=== PATIENT | female | born 1980 | race Caucasian/White ===

== ENCOUNTER 2020-12-15 14:08 | Emergency (ER) | payer BC, SELFPAY ==
[2020-12-15 14:14] VITALS: BP 129/78; PULSE 85; RESP 16; TEMP 36.9; O2SAT 100
--- NOTE | 2020-12-15 14:24 | ED.GENADULT ---
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 Shaila believes she forgot to remove old tampon and inserted a new one on Monday12/11/2020 and feels as if she feels something in vaginal cavity. On 12/14/2020 developed a foul odor to the menstrual cycle and believes she has an infection. Irregular menstrual cycle due to Nexplanon implant. No dysuria, burning, frequency, and urgency. No treatment. History of Herpes. Denies fever or chills. Denies nausea, vomiting, and abdominal pain. Tolerating po intake well. No significant pelvic pain. No concerns for STDs. No flank pain. No exacerbating factors. Denies hematuria. Abnormal vaginal bleeding due to Nexplanon implant. Remains active. The patient reports she has not been diagnosed with COVID-19. The patient reports she received 2 fabrik COVID-19 vaccines. The patient reports she is not waiting for the results of a COVID-19 lab test. The patient reports she does not have weakness, fatigue, or myalgia. The patient reports she does not have a new or worsening cough or shortness of breath. Denies chest pain. The patient reports she does not have any rhinorrhea, congestion, sore throat, or diarrhea. Denies recent traveling. Denies concerns for COVID-19 or exposures. At this time, the patient is not suspected of having COVID-19. Some parts of this dictation were generated by voice recognition software and may contain typographical and/or grammatical inaccuracies. Related Data Home Medications Medication Instructions Recorded Confirmed acyclovir 200 mg PO DAILY 12/15/20 12/15/20 Allergies Allergy/AdvReac Type Severity Reaction Status Date / Time Cephalosporins Allergy Mild Unknown Verified 12/15/20 14:32 erythromycin base Allergy Mild Unknown Verified 12/15/20 14:32 CEPHALEXIN MONOHYDRATE Allergy Unknown Unknown Uncoded 12/15/20 14:32 Review of Systems Review of Systems: Narrative: Narrative: CONSTITUTIONAL: Denies fever, chills, sweats. EYES: Denies visual changes, redness, discharge. ENT: Denies rhinorrhea, congestion, sore throat, otalgia. CARDIOVASCULAR: Denies chest pain, palpitations, edema. RESPIRATORY: Denies dyspnea, wheezing, cough GASTROINTESTINAL: Denies abdominal pain, nausea, vomiting, diarrhea. GENITOURINARY: Complaints of a stuck tampon in vagina cavity. Denies dysuria, hematuria, abnormal discharge. SKIN: Denies rash or itching. MUSCULOSKELETAL: Denies acute back pain, joint pain, or myalgia. NEUROLOGIC: Denies numbness or focal weakness. PSYCHIATRIC: Denies anxiety or depression. All systems reviewed & are unremarkable except as noted in HPI and below. [facility] Past Medical History Medical History (Updated 12/16/20 @ 00:00 by Sarahi Massey) Herpes simplex type 2 infection Vaginal delivery Surgical History Surgical History (Updated 12/15/20 @ 14:46 by CIRA Jules) History of dental surgery History of hemorrhoidectomy Family History Family History (Updated 12/15/20 @ 14:48 by CIRA Jules) Father Hypertension Diabetes mellitus Hypercholesteremia Mother Cancer of kidney Sibling Asthma Comments At time of signature, I have reviewed and agree with the nursing past medical, surgical, social, and family history. Please see the nursing chart for further information. There is patient's past medical history and family history relevant pertinent to the presenting complaint. Exam Narrative: Exam Narrative: GENERAL: This is a well-nourished, well-developed patient, in no apparent distress. Talks in full sentences and ambulates with steady gait without dyspnea HEAD: Normocephalic, atraumatic. E
[2020-12-15 14:34] VITALS: BP 129/78; PULSE 85; RESP 16; TEMP 36.9; O2SAT 100
== END 2020-12-15 15:00 | disposition home or self-care (01) ==
PROVIDERS: Emergency Provider Nurse Practitioner Family
DX: T19.2XXA Foreign body in vulva and vagina, initial encounter (principal)
CPT/HCPCS: 81003; 99212; G0463

== ENCOUNTER → 2021-05-14 15:51 | Outpatient (CLI) | payer BC, SELFPAY ==
--- NOTE | ~2021-05-14 | MM_ITS ---
EXAMINATION: MM screening brooke BI w jeet HISTORY: Screening mammogram TECHNIQUE: Craniocaudal and mediolateral oblique 3-D tomosynthesis images were obtained and synthetic 2-D images were generated. CAD analysis was submitted and interpreted. COMPARISON: None, baseline BREAST PARENCHYMAL COMPOSITION: The breasts are heterogeneously dense, which may obscure small masses . FINDINGS: RIGHT BREAST: There is no evidence of suspicious mass, calcification, or architectural distortion to suggest malignancy. LEFT BREAST: There is focal asymmetry in the posterior third of the upper outer quadrant breast. IMPRESSION: 1. Left breast focal asymmetry. 2. Additional mammographic views and possible breast ultrasound are recommended. BI-RADS Category 0: Incomplete: Needs additional imaging evaluation. Reviewed, dictated and finalized at location A. GER COMMUNITY RELATIONS IMPRESSION: 1. Left breast focal asymmetry. 2. Additional mammographic views and possible breast ultrasound are recommended . BI-RADS Category 0: Incomplete: Needs additional imaging evaluation.
== END ==
PROVIDERS: Visit Provider Obstetrics & Gynecology
DX: Z12.31 Encounter for screening mammogram for malignant neoplasm of breast (principal); R92.8 Other abnormal and inconclusive findings on diagnostic imaging of breast
CPT/HCPCS: 77063; 77067

== ENCOUNTER → 2021-05-31 09:07 | Outpatient (CLI) | payer BC, SELFPAY ==
--- NOTE | ~2021-05-31 | MMUS_ITS ---
EXAMINATION: MM diagnostic brooke LT w jeet, US breast LT limited HISTORY: Follow-up left breast asymmetry TECHNIQUE: Additional 3-D tomosynthesis images of the left breast were performed and synthetic 2-D im ages were generated. CAD analysis was submitted and interpreted. High resolution Limited left breast ultrasound was performed. COMPARISON: 05/14/2021 BREAST PARENCHYMAL COMPOSITION: Breast composed of scattered areas of fibroglandular density. FINDINGS: MAMMOGRAPHIC FINDINGS: Focal asymmetry upper inner quadrant adjacent to the pectoralis muscle is less dense with spot compre ssion views, likely superimposed fibroglandular tissue. ULTRASOUND: Limited left breast ultrasound: Normal heterogeneous echotexture without focal solid or cystic mass. IMPRESSION: 1. Probable benign asymmetric fibroglandular tissue, upper inner quadrant. No sonographic correlate. 2. Recommend 6 month follow-up diagnostic left mammogram BI-RADS category 3, probably benign findings. Reviewed, dictated and finalized at location A. ONNEL SECURITY SPECIALIST IMPRESSION: 1. Probable benign asymmetric fibroglandular tissue, upper inner quadrant. No s onographic correlate. 2. Recommend 6 month follow-up diagnostic left mammogram BI-RADS category 3, probably benign findings.
== END ==
PROVIDERS: Visit Provider Obstetrics & Gynecology
DX: R92.8 Other abnormal and inconclusive findings on diagnostic imaging of breast (principal)
CPT/HCPCS: 76642; 77061; 77065; G0279

== ENCOUNTER → 2021-11-29 14:18 | Outpatient (CLI) | payer BC, SELFPAY ==
--- NOTE | ~2021-11-29 | MMUS_ITS ---
EXAMINATION: MM diagnostic brooke LT w jeet, US breast LT complete HISTORY: Follow-up left breast asymmetry. TECHNIQUE: Additional 3-D tomosynthesis images of the left breast were performed and synthetic 2-D im ages were generated. CAD analysis was submitted and interpreted. High resolution Limited left breast ultrasound was performed. COMPARISON: Comparison to multiple prior studies sequentially, with oldest reviewed study dated 05/05. BREAST PARENCHYMAL COMPOSITION: Breast composed of scattered areas of fibroglandular density FINDINGS: MAMMOGRAPHIC FINDINGS: There are no suspicious masses, calcifications or architectural distortion in the left breast to sugg est malignancy. Asymmetric fibroglandular tissue in the upper inner quadrant are stable. ULTRASOUND: Complete US of all 4 quadrants of the the left and retroareolar region was reviewed. Normal heterogen eous echotexture without focal mass. IMPRESSION: 1. No evidence for malignancy in the left breast. 2. Routine yearly screening mammogram and regular clinical breast examination are recommended. BI-RADS Category 1: Negative Reviewed, dictated and finalized at location A. IMPRESSION: 1. No evidence for malignancy in the left breast. 2. Routine yearly screening mammogram and regular clinical breast examination a re recommended. BI-RADS Category 1: Negative
== END ==
PROVIDERS: Visit Provider Obstetrics & Gynecology
DX: R92.8 Other abnormal and inconclusive findings on diagnostic imaging of breast (principal)
CPT/HCPCS: 76641; 77061; 77065; G0279

== ENCOUNTER → 2023-06-23 11:26 | Outpatient (CLI) | payer BC, SELFPAY ==
--- NOTE | ~2023-06-23 | MM_ITS ---
EXAMINATION: MM screening brooke BI w jeet HISTORY: Screening TECHNIQUE: Craniocaudal and mediolateral oblique 3-D tomosynthesis images were obtained and synthetic 2-D images were generated. CAD analysis was submitted and interpreted. COMPARISON: Comparison to multiple prior studies sequentially, with oldest reviewed study dated 05/05. BREAST PARENCHYMAL COMPOSITION: The breasts are heterogeneously dense, which may obscure small masses . FINDINGS: There is no evidence of suspicious mass, calcification, or architectural distortion to sugg est malignancy in either breast. There has been no suspicious interval change. IMPRESSION: 1. No mammographic evidence of malignancy. 2. Recommend routine screening mammography in one year. BI-RADS Category 1: Negative Reviewed, dictated and finalized at location A. LY LAW MEDIATOR
== END ==
PROVIDERS: PCP Obstetrics & Gynecology; Visit Provider Obstetrics & Gynecology
DX: Z12.31 Encounter for screening mammogram for malignant neoplasm of breast (principal)
CPT/HCPCS: 77063; 77067

== ENCOUNTER 2024-06-24 14:11 | Outpatient (CLI) | payer BC, SELFPAY ==
--- NOTE | ~2024-06-24 | MM_ITS ---
EXAMINATION: MM screening brooke BI w jeet HISTORY: Screening TECHNIQUE: Craniocaudal and mediolateral oblique 3-D tomosynthesis images were obtained and synthetic 2-D images were generated. CAD analysis was submitted and interpreted. COMPARISON: Comparison to multiple prior studies sequentially, with oldest reviewed study dated 05/05. BREAST PARENCHYMAL COMPOSITION: BI-RADS CATEGORY 2 - BENIGN FINDINGS FINDINGS: There is no evidence of suspicious mass, calcification, or architectural distortion to sugg est malignancy in either breast. There has been no suspicious interval change. IMPRESSION: 1. No mammographic evidence of malignancy. 2. Recommend routine screening mammography in one year. BI-RADS Category 1: Negative Reviewed, dictated and finalized at location A. BLAST OPERATOR
== END 2024-06-24 14:12 | disposition home or self-care (01) ==
LOC: MICIMG 14:12
PROVIDERS: PCP Obstetrics & Gynecology; Visit Provider Obstetrics & Gynecology
DX: Z12.31 Encounter for screening mammogram for malignant neoplasm of breast (principal); R92.30 Dense breasts, unspecified
CPT/HCPCS: 77063; 77067

== ENCOUNTER 2025-01-13 17:18 | Emergency (ER) | payer BC, SELFPAY ==
--- OUTSIDE RECORDS SUMMARY | 2025-01-13 17:21 | XMS_ITS | Patient Health Record ---
Author Organization [facility] Address [address] [place], [place] [id number] Care Team Providers Care Crane Ladle Person Name Role Phone Answer, Declined Unavailable Unavailable Allergies Allergen (clinical drug ingredient) Drug/Non Drug Allergy documented on EMR Reaction Allergy Type Onset Date Status Keflex Unknown Drug Allergy Active azithromycin Azithromycin Unknown Drug Allergy A ctive Reason For Referral No Information Medications Medication SIG (Take, Route, Fr equency, Duration) Notes Start Date End Date Status Levothyroxine Sodium Active traMADol HCl Active Doxycycline Active Social History Tobacco Use: Social History Observation Description Date Details (start date - stop date) Former Smoker NA - NA Tobacco Use/Smoking Question Answer Notes Tobacco use: former smoker Plan Of Treatment No Information Insurance Providers Payer Name Payer Address Payer Phone Subscriber Number Group Number Insured Name Patient Relationship to Insured Coverage Start Date Coverage End Date [facility] ([facility]) ATTN CLAIMS [address] [place] [address] [id number] Shaila Ayala Self - patient is the insured Medical (General) History Medical History History ICD Code bronchitis Leg/Feet cramps Sleep apnea Thyroid Disease restless leg syndrome
--- OUTSIDE RECORDS SUMMARY | 2025-01-13 17:21 | XMS_ITS | Clinical Summary ---
Author Organization [facility] Address [address] [address] Care Team Providers Care Junior Business Analyst Name Role Phone Pal Marin DO Primary Care Provider [phone] Allergies Active Allergy Reactions Criticality Noted Date Comments Cephalexin Swelling Low 06/11/2016 Erythromycin Swelling Low 06/11/2016 Medications acyclovir (ZOVIRAX) 200 mg capsule daily. 8 Active cholecalcifero l, Vitamin D3, 50 mcg (2,000 unit) TabletIndicati ons:Vitamin D deficiency Take 1 Tablet (2,000 Units) by mouth daily. 2 Active Syringe with Needle, Disp, (BD Luer-Venus Syringe) 3 mL 25 gauge x 1 SyringeIndicat ions:B12 deficiency Use to inject cyanocobalamin every 2 weeks. 50 Each 4 Active coenzyme Q10 (CoQ-10) 100 mg Capsule Take 1 Capsule (100 mg) by mouth daily. 4 Active varenicline (CHANTIX) 0.5 mg (11)- 1 mg (42) tablets STARTER dose packIndication s:Tobacco use Take as directed on package. 53 Tablet 4 Active Additional Information Patient not taking.Reported on 08/16/2024 atovaquone-pro guaniL (MALARONE) 250-100 mg Tablet Take 1 Tablet by mouth daily. 20 Tablet 5 Active levothyroxine 112 mcg tablet TAKE 1 TABLET(112 MCG) BY MOUTH DAILY IN THE MORNING 90 Tablet 1 5 Active atorvastatin (LIPITOR) 10 mg tablet TAKE 1 TABLET(10 MG) BY MOUTH DAILY 30 Tablet 11 Active cyanocobalamin (VITAMIN B-12) 1,000 mcg/mL SolutionIndica tions:B12 deficiency ADMINISTER 1 ML(1000 MCG) IN THE MUSCLE EVERY 2 WEEKS 6 mL 2 Active Hospital, Clinic, or Other Facility Administered Medication Ordered Dose Route Frequency Start Date End Date Status cyanocobalamin (VITAMIN B-12) injection 1,000 mcgIndications:B12 deficiency 1000 mcg IM EVERY TWO WEEKS 03/11/2024 Active Active Problems Problem Noted Date Diagnosed Date 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 Hypercholesteremia 12/23/2020 Tobacco use 12/27/2018 B12 deficiency 08/28/2018 Anxiety 08/15/2018 Herpes simplex infection of genitourinary system 08/15/2018 Vitamin D deficiency 08/15/2018 Family history of diabetes mellitus in father, a ge 62 08/15/2018 Family history of hypertension, dad 08/15/2018 Family history of kidney cancer, mother age 38 0 08/15/2018 Resolved Problems Problem Noted Date Diagnosed Date Resolved Date Moderate episode of recurren t major depressive disorder 12/27/2018 01/03/2022 Encounters Date Type Department Care Team Description 01/07/2025 External Device Data STL ABSTRACTION Provider, Abstract 12/19/2024 [facility] Primary Care [facility] [address] [address] Pal Marin, DO 12/19/2024 [facility] [address] [address] Pal Marni, DO 12/18/2024 External Device Data STL ABSTRACTION Provider, Abstract 12/18/2024 External Device Data STL ABSTRACTION Provider, Abstract 11/19/2024 External Device Data STL ABSTRACTION Provider, Abstract 11/05/2024 External Device Data STL ABSTRACTION Provider, Abstract 10/29/2024 [facility] [address] [address] Pal Marin, DO B12 deficiency 10/29/2024 External Device Data STL ABSTRACTION Provider, Abstract 10/23/2024 External Device Data STL ABSTRACTION Provider, Abstract 10/22/2024 External Device Data STL ABSTRACTION Provider, Abstract from Last 3 Months Immunizations Immunization Administration Dates Next Due (ADACEL/BOOSTRIX)(10 YR UP) TDAP VACCINE, 0.5ML, IM 05/10/2018 (HAVRIX/VAQTA)(19 YRS UP) HE PATITIS A VACCINE ADULT DOSAGE 1 ML IMM 07/15/2024 (PFIZER)(12 YR UP) COVID-19 VACCINE - EMERGENCY USE AUTHORIZATION, MRNA, [id number](PF) 30 MCG/0.3 ML IM SUSP 06/08/2021,09/24/2020,08/31/2020 Family History Medical History Relation Name Comments Healthy Brother Diabetes Father Hypertension Father Cancer Mother Asthma Sister Relation Name Status Comments Brother Alive Father Alive Mother Sister Alive Social History Tobacco Use Types Packs/Day Years Used Date Smoking Tobacco: Former Cigarettes Smokeless Tobacco: Never Tobacco Cessation:Counseling Given: Not Answered Alcohol Use Standard Drinks/Week Comments Yes 0 (1 standard drink = 0.6 oz pur e alcohol) Comments No Sex and Gender Information Value Date Recorded Sex Assigned at Female 12/28/2022 10:14 AM CDT Legal Sex Female 7:33 PM ARMATURE WINDER Gender Identity Female 12/28/2022 10:14 AM CDT Sexual Orientation Straight 12/28/2022 10 :14 AM CDT Last Filed Vital Signs Vital Sign Reading Time Taken Comments Blood Pressure 130/84 08/16/2024 10:37 AM CDT Pulse 80 08/16/2024 10:37 AM CDT Temperature 36.4 C (97.6 F) 08/16/2024 10:37 AM CDT Respiratory Rate 16 07/23/2024 1:25 PM ARMATURE WINDER Oxygen Saturation 98% 07/23/2024 1:25 PM ARMATURE WINDER Inhaled Oxygen Concentration - - Weight 68.9 kg (151 lb 12.8 oz) 025 10:37 AM CDT Height 163.8 cm (5' 4.5) 08/16/2024 10 :37 AM CDT Body Mass Index 25.65 08/16/2024 10:37 AM CDT Plan of Treatment Health Maintenance Due Date Last Done Comments Pre-Diabetes and Diabetes Screening 1980 HPV VACCINES (1 - 3-dose series) 09/04/1995 HEPATITIS B VACCINES (1 of 3 - 19+ 3-dose series) 09/04/1999 HPV/Cotest (21-29) 2001 HPV/Cotest (30-65) 2010 BREAST CANCER SCREENING 05/10/2022 05/10/2021 CERVICAL CANCER SCREENING 12/15/2023 PAP SMEAR 12/15/2023 12/14/2020 (Prev iously completed), 08/07/2018 COVID-19 Vaccine (2023-2 5 season) 2024 06/08/2021, 09/24/2020, 08/31/2020 Preventative Visit- Commercial 06/05/2024 1 , 03/10/2023, 01/03/2022, Additional history exists INFLUENZA VACCINE (#1) 2025 , 03/10/2023, 08/01/2022, Additional history exists DTAP/TDAP/TD VACCINES (2 - T d or Tdap) 05/10/2028 05/10/2018 Insurance [facility] [employer]/TRUE BLUE PPO Care Teams Junior Business Analyst Relationship Specialty Start Date End Date Pal Marin DO PCP - General Family Practice 08/15/18
--- NOTE | 2025-01-13 17:22 | ED.URI ---
HPI - URI/Sore Throat General Chief Complaint: Upper Respiratory Infection Stated Complaint: Sore Throat/Cough/Chest Congestion Time Seen by Provider: 01/13/25 17:30 Source: patient and RN notes reviewed Mode of arrival: ambulatory Limitations: no limitations History of Present Illness HPI Narrative: 44-year-old female presents with concern of for 3 day history of stuffy nose, runny nose, sore throat, cough. She reports she has felt a he but has not had a fever. She reports she has been tired. She took TheraFlu last night. She also took 3 doses of amoxicillin that she had left over. MD elicited complaint: cough and sore throat Related Data Home Medications ?Medication ?Instructions ?Recorded ?Confirmed ?Last Taken ?Type acyclovir 200 mg capsule 200 mg PO DAILY 12/15/20 12/15/20 Unknown History atorvastatin 10 mg tablet mg 01/13/25 Unknown History cyanocobalamin (vitamin B-12) mcg 01/13/25 Unknown History 1,000 mcg/mL injection solution levothyroxine 112 mcg tablet mcg 01/13/25 Unknown History Allergies Allergy/AdvReac Type Severity Reaction Status Date / Time Cephalosporins Allergy Mild Unknown Verified 01/13/25 17:32 erythromycin base Allergy Mild Unknown Verified 01/13/25 17:32 cephalexin (From Keflex) Allergy Unknown Unknown Verified 01/13/25 17:32 CEPHALEXIN MONOHYDRATE Allergy Unknown Unknown Uncoded 01/13/25 17:32 Review of Systems Review of Systems: CONSTITUTIONAL: Reports malaise, fatigue. Denies chills, sweats, or fever. EYES: Denies visual changes, redness, or discharge. ENT: Reports rhinorrhea, congestion, and sore throat. CARDIOVASCULAR: Denies chest pain, palpitations, or edema. RESPIRATORY: Reports cough. Denies dyspnea. GASTROINTESTINAL: Denies abdominal pain, nausea, vomiting, diarrhea SKIN: Denies rash or itching. MUSCULOSKELETAL: Reports myalgia. NEUROLOGIC: Denies headache. All systems reviewed & are unremarkable except as noted in HPI and below PMFSH Past Medical History Medical History (Updated 01/13/25 @ 17:51 by Dolores Mitchell NP) Vaginal delivery Herpes simplex type 2 infection Surgical History Surgical History (Updated 12/15/20 @ 14:46 by CIRA Jules) History of hemorrhoidectomy History of dental surgery Family History Family History (Updated 12/15/20 @ 14:48 by CIRA Jules) Father Hypertension Diabetes mellitus Hypercholesteremia Mother Cancer of kidney Sibling Asthma Comments At time of signature, agree with nursing past medical, surgical, social and family history. There is no relevant family history pertinent to the presenting complaint Exam Narrative: GENERAL: Well-appearing, well-nourished, and in no acute distress. HEAD: Normocephalic EYES: PERRLA, conjunctivae clear ENT: Nares clear. Mucous membranes moist. TM pearly carbajal with sharp light reflex bilaterally; no tragal tenderness. Oropharynx erythematous without lesions. Tonsils not enlarged and without exudate, no drooling, no hoarseness, no trismus, uvula midline. NECK: Supple. No lymphadenopathy CHEST: Clear to auscultation, breath sounds equal. No wheezing, rhonchi, rales, or stridor. No respiratory distress, speaks in full sentences. HEART: Regular rate and rhythm. No murmur heard. SKIN: Warm, dry, no rash. NEURO: Alert and oriented x3. PSYCH: Normal mood and affect Course Course Emergency Course: Patient is aware of diagnosis, understands and agrees to treatment plan. Anticipatory guidance given. Patient agrees to follow-up as directed and is aware of reasons to seek care at the emergency department. Portions of this record may have been created with voice recognition software Level of Care: Express Care Visit Vital Signs Vital signs: Reviewed. MDM - URI/Sore Throat MDM Narrative Medical decision making narrative: Differential diagnosis considered: Carlson virus, strep pharyngitis, allergic rhinitis, upper respiratory tract infection, sinusitis, rhinosinusitis, nasopharyngitis. viral pharyngitis, otitis media, otitis externa, pneumonia, bronchitis, viral cough syndrome, viral syndrome, and influenza. Exam findings show no acute concerns or changes; patient is non-toxic appearing and is in no distress. Patient is appropriate for outpatient treatment and follow-up. Lab Data Attestation: I reviewed the patient's lab results. Critical Care Time Critical Care Time Critical Care Time: No Discharge Plan Discharge Clinical Impression: Upper respiratory infection Patient Disposition: Home Condition: Stable Instructions: Upper Respiratory Infection (ED) Additional Instructions: -Take strict precautions to prevent the spread of your virus. Be diligent about covering your cough (even when you are alone) and washing your hands frequently. -You may contagious until you have been symptom and/or fever free for 24 hours without fever reducing medicine -Alternate Ibuprofen and Tylenol for pain and fever relief (per package directions) -Drink plenty of fluid - drink fluid with electrolytes such as Gatorade or other oral re-hydration solution. Avoid caffeine, which can make dehydration worse. -Get plenty of rest to help your body heal. -Use a cool mist humidifier for chest and nasal congestion. -Eat RAW honey or use cough drops to ease throat discomfort -Do not smoke or expose children to secondhand smoke -Wash your hands frequently. -Please follow-up with your primary care doctor in the next 1-2 days if your symptoms do not improve. -If you have any worsening of symptoms or any other concerns please go to the ED immediately. -Please take medications as prescribed and continue taking your home medications as usual. Patient Language: Estonian Prescriptions: New dextromethorphan-guaifenesin [Mucinex DM] 60-1,200 mg tablet extended release 12 hr 1 tablet PO Q12H Qty: 12 0RF methylprednisolone [Medrol (Huber)] 4 mg tablets,dose pack See Rx Instructions .ROUTE .COMPLEX Qty: 21 0RF Rx Instructions: orally per package directions No Action acyclovir 200 mg capsule 200 mg PO DAILY atorvastatin 10 mg tablet cyanocobalamin (vitamin B-12) 1,000 mcg/mL solution levothyroxine 112 mcg tablet Follow-up/Referrals: PHYSICIAN NOT ON STAFF,NONSTAFF [Primary Care Provider] - Time of Disposition: 17:53
[2025-01-13 17:25] VITALS: BP 148/88; PULSE 104; RESP 16; TEMP 37; O2SAT 100
[2025-01-13 17:53] LABS: EDCOVIDSCREEN Negative (Negative); EDSTREPNEGPOS1 Negative (Negative)
== END 2025-01-13 17:56 | disposition home or self-care (01) ==
PROVIDERS: Emergency Provider Nurse Practitioner
DX: J06.9 Acute upper respiratory infection, unspecified (principal); Z20.822 Contact with and (suspected) exposure to COVID-19
CPT/HCPCS: 87426; 87880; 99213; G0463